=== PATIENT | female | born 1995 | race Caucasian/White ===

== ENCOUNTER → 2023-09-16 13:24 | Outpatient (REF) | payer OTHER, SELFPAY | LOC: RAD 13:24 | PROVIDERS: ATTENDING PHYSICIAN Obstetrics & Gynecology | DX: Z04.1 Encounter for examination and observation following transport accident (principal) | CPT/HCPCS: 76815 ==

== ENCOUNTER → 2024-02-04 07:44 | Outpatient (REF) | payer OTHER, SELFPAY | LOC: PNTC 07:44 | PROVIDERS: ATTENDING PHYSICIAN Obstetrics & Gynecology | DX: O09.299 Supervision of pregnancy with other poor reproductive or obstetric history, unspecified trimester (principal); O34.211 Maternal care for low transverse scar from previous cesarean delivery | CPT/HCPCS: 59025; 76815 ==

== ENCOUNTER 2024-03-03 08:50 | Inpatient (IN) | payer OTHER, SELFPAY ==
[2024-03-03 08:55] VITALS: BP 118/82; BMI 28.3
[2024-03-03 10:08] LABS: % Basophils 0.4 % (0-2); % Immature Granulocytes 3.1 % (0-0.5); % Lymphocytes 15.5 % (20.5-51.1); % Monocytes 5.5 % (1.7-9.3); % Neutrophils 73.5 % (42.2-75.2); Absolute Eosinophils 0.2 10^3/uL (0-0.7); Absolute Immature Granulocytes 0.3 10^3/uL (0-0.05); Absolute Lymphocytes 1.7 10^3/uL (1.2-3.4); Absolute Monocytes 0.6 10^3/uL (0.1-0.6); Hematocrit 35.9 % (37.0-47.0); Hemoglobin 12.8 g/dL (12.0-16.0); Mean Corp Hgb Conc. 35.7 g/dL (33.0-37.0); Mean Corpuscular Hgb 32.7 pg (27.0-31.0); Mean Corpuscular Volume 91.8 fL (81.0-99.0); Mean Platelet Volume 11.7 fL (7.4-10.4); Nucleated Red Blood Cells % 0 %; Platelet Count 148 10^3/uL (130-400); Red Blood Cell Count 3.91 10^6/uL (4.20-5.40); Red Cell Dist. Width 13.1 % (11.5-14.5); White Blood Cell Count 10.9 10^3/uL (4.8-10.8)
[2024-03-03] MEDS: PITOCIN 30 UNITS/NSS 500 ML IV ×2 (10:38→10:42)
[2024-03-03] MEDS: LR 1000 IV ×2 (11:14→19:15)
[2024-03-03] MEDS: FENTANYL/BUPIVACAINE 100 EPIDURAL (19:06)
[2024-03-03] MEDS: SUBLIMAZE 100 MCG EPIDURAL (19:28)
[2024-03-04] MEDS: FENTANYL/BUPIVACAINE 100 EPIDURAL ×2 (03:11→10:45)
[2024-03-04] MEDS: LR 1000 IV ×2 (05:46→10:45)
[2024-03-04] MEDS: ZOFRAN 4 MG IV (10:09)
[2024-03-04] MEDS: PITOCIN 30 UNITS/NSS 500 ML IV (13:03)
[2024-03-04] MEDS: METHERGINE INJECTION 0.2 MG IM (13:25)
[2024-03-05 05:40] LABS: Hematocrit 31.4 % (37.0-47.0); Hemoglobin 11.3 g/dL (12.0-16.0)
[2024-03-05] MEDS: FLOVENT 44 MCG INHALER INH (08:42)
[2024-03-05] MEDS: CLARITIN 10 MG PO (08:48)
[2024-03-05] MEDS: PRENATAL PLUS 1 TABLET PO (08:48)
[2024-03-05] MEDS: SENOKOT-S 1 TABLET PO (10:23)
[2024-03-05] MEDS: FLOVENT 44 MCG INHALER 1 PUFF INH (20:24)
[2024-03-06] MEDS: CLARITIN 10 MG PO (08:35)
[2024-03-06] MEDS: PRENATAL PLUS 1 TABLET PO (08:35)
[2024-03-06] MEDS: SENOKOT-S 1 TABLET PO (08:38)
[2024-03-06] MEDS: FLOVENT 44 MCG INHALER INH (12:23)
[2024-03-08 11:38] LABS: Syphilis/T. pallidum Ab Reflex Negative (Negative)
== END 2024-03-06 12:25 | disposition home or self-care (01) | DRG 807 ==
LOC: LDRP 08:50
PROVIDERS: Obstetrics & Gynecology; ADMITTING PHYSICIAN Obstetrics & Gynecology
PROC: 10E0XZZ Delivery of Products of Conception, External Approach (ICD-10-PCS; 2024-03-04)
PROC: 0HQ9XZZ Repair Perineum Skin, External Approach (ICD-10-PCS; 2024-03-04)
DX: O48.0 Post-term pregnancy (principal); Z37.0 Single live birth; O34.211 Maternal care for low transverse scar from previous cesarean delivery; N85.8 Other specified noninflammatory disorders of uterus; O69.81X0 Labor and delivery complicated by cord around neck, without compression, not applicable or unspecified; O70.0 First degree perineal laceration during delivery; Z3A.40 40 weeks gestation of pregnancy; O99.52 Diseases of the respiratory system complicating childbirth; O43.193 Other malformation of placenta, third trimester; J45.909 Unspecified asthma, uncomplicated
CPT/HCPCS: 36415; 85014; 85018; 85025; 86780; 86850; 86900; 86901; 94640